=== PATIENT | male | born 1975 ===

== ENCOUNTER 2019-11-19 12:02 | Emergency (ER) | payer SELFPAY ==
[2019-11-19 12:09] VITALS: BP 100/55; PULSE 79; TEMP 98.7; BMI 21.7
[2019-11-19] MEDS ORDERED: ACETAMINOPHEN 325 MG TABLET (FP) PO ONE (13:17)
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
[2019-11-19] MEDS ORDERED: ACETAMINOPHEN 325 MG TABLET (FP) ONE (13:20)
[2019-11-19] MEDS ORDERED: LIDOCAINE 1%/EPI 1:100000 (50 ML MULTI DOSE VIAL) INF ONE (14:19)
[2019-11-19] MEDS ORDERED: LIDOCAINE 1%/EPI 1:100000 (20 ML MULTI DOSE VIAL) ONE (14:23)
== END 2019-11-19 15:59 | disposition home or self-care (01) ==
LOC: JERFT 12:02
PROC: 3E023BZ Introduction of Anesthetic Agent into Muscle, Percutaneous Approach (ICD-10-PCS; principal; 2019-11-19)
PROC: 0JQ00ZZ Repair Scalp Subcutaneous Tissue and Fascia, Open Approach (ICD-10-PCS; 2019-11-19)
DX: S01.02XA Laceration with foreign body of scalp, initial encounter (principal); X99.0XXA Assault by sharp glass, initial encounter; Y93.89 Activity, other specified; Y92.018 Other place in single-family (private) house as the place of occurrence of the external cause; Y99.8 Other external cause status; Y07.410 Brother, perpetrator of maltreatment and neglect
CPT/HCPCS: 70450-TC; 99282-25

== ENCOUNTER 2019-11-26 15:26 | Emergency (ER) | payer SELFPAY ==
[2019-11-26 15:31] VITALS: BP 124/73; PULSE 75; TEMP 97.6; BMI 21.7
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
== END 2019-11-26 15:53 | disposition home or self-care (01) ==
LOC: JERFT 15:26
DX: Z48.817 Encounter for surgical aftercare following surgery on the skin and subcutaneous tissue (principal); Z48.02 Encounter for removal of sutures; F17.210 Nicotine dependence, cigarettes, uncomplicated; Z90.49 Acquired absence of other specified parts of digestive tract; Z87.828 Personal history of other (healed) physical injury and trauma
CPT/HCPCS: 99281-25